=== PATIENT | female | born 1985 | race Two or more races ===

== ENCOUNTER 2021-10-07 20:47 | Emergency (ER) ==
[~2021-10-07] VITALS: Ht 162.6 cm; Wt 58.0 kg
[2021-10-07 20:48] VITALS: BP 129/79
== END 2021-10-07 22:34 | disposition left against medical advice (07) ==
LOC: M ED 20:47
DX: Z53.21 Procedure and treatment not carried out due to patient leaving prior to being seen by health care provider (principal)

== ENCOUNTER 2021-10-08 08:51 | Emergency (ER) | payer MEDICAID ==
[~2021-10-08] VITALS: Ht 167.6 cm; Wt 57.7 kg
[2021-10-08 12:38] LABS: BASO % 0.4 % (0.0-1.0); EOS # 0.1 10^3/uL (0.0-0.5); EOS % 1.1 % (0.0-3.0); HEMATOCRIT 38.1 % (36.0-47.0); HEMOGLOBIN 12.3 g/dl (12.0-15.5); LYMPH # 2.4 10^3/uL (1.5-5.0); LYMPH % 22.7 % (24.0-44.0); MEAN CORPUSCULAR HEMOGLOBIN 29.1 pg (27.0-33.0); MEAN CORPUSCULAR HGB CONC 32.3 g/dl (32.0-36.5); MEAN CORPUSCULAR VOLUME 90.3 fl (80.0-96.0); MONO # 0.8 10^3/uL (0.0-0.8); MONO % 7.4 % (2.0-8.0); NEUTROPHILS # 7.1 10^3/uL (1.5-8.5); NEUTROPHILS % 68.1 % (36.0-66.0); PLATELET COUNT, AUTOMATED 262 10^3/uL (150-450); RED BLOOD COUNT 4.22 10^6/uL (4.00-5.40); WHITE BLOOD COUNT 10.5 10^3/uL (4.0-10.0)
--- NOTE | 2021-10-08 13:47 | REP ---
INDICATION: vaginal bleeding LMP 08/16/21. COMPARISON: None. TECHNIQUE: Transabdominal imaging FINDINGS: Within the uterus there is an anechoic structure with increased echoes surrounding it consistent with a decidual reaction. Within the gestational sac there is echogenic material consistent with a pole the mean crown-rump length measurement of which is consistent with an 8 week 1 day gestational age. Based on that the estimated date of delivery is 05/19/2022. Doppler interrogation of the pole shows a heart rate of 167 beats per minute. No chorionic or subchorionic abnormalities were identified. IMPRESSION: Early OB ultrasound as described above. <Electronically signed by Gigi Chen > 10/08/21 [id number]
[2021-10-08] MEDS ORDERED: RHOGAM 300 MCG (1500 IU) INJ (J2790) IM ONE (14:55)
[2021-10-08 15:52] LABS: GC DNA AMPLIFICATION NEGATIVE (NEGATIVE)
[2021-10-08 17:31] VITALS: BP 115/82
== END 2021-10-08 17:33 | disposition home or self-care (01) ==
LOC: M ED 08:51
DX: O20.0 Threatened abortion (principal); Z3A.08 8 weeks gestation of pregnancy; O20.8 Other hemorrhage in early pregnancy; O09.511 Supervision of elderly primigravida, first trimester
CPT/HCPCS: 76801; 81001; 84702; 85025; 86850; 86900; 86901; 87210; 87661; 96372; 99283; J2790

== ENCOUNTER → 2021-10-26 | Outpatient (CLI) | payer MEDICAID, OTHER ==
[2021-10-26 17:21] LABS: BASO # 0.1 10^3/uL (0.0-0.2); BASO % 0.3 % (0.0-1.0); EOS # 0.2 10^3/uL (0.0-0.5); EOS % 1.1 % (0.0-3.0); HEMATOCRIT 38.8 % (36.0-47.0); HEMOGLOBIN 12.9 g/dl (12.0-15.5); LYMPH # 2.7 10^3/uL (1.5-5.0); LYMPH % 18.2 % (24.0-44.0); MEAN CORPUSCULAR HEMOGLOBIN 29.3 pg (27.0-33.0); MEAN CORPUSCULAR HGB CONC 33.2 g/dl (32.0-36.5); MEAN CORPUSCULAR VOLUME 88.2 fl (80.0-96.0); NEUTROPHILS # 10.8 10^3/uL (1.5-8.5); PLATELET COUNT, AUTOMATED 302 10^3/uL (150-450); WHITE BLOOD COUNT 14.8 10^3/uL (4.0-10.0)
[2021-10-26 18:34] LABS: HEPATITIS C VIRUS ABY INDEX 0.1 INDEX (<0.8); HIV 1&2 SCREEN CENTAUR NEGATIVE (NEGATIVE)
[2021-10-26 21:05] LABS: GC DNA AMPLIFICATION NEGATIVE (NEGATIVE)
== END ==
LOC: M PLALAB 15:52
PROVIDERS: ATTEND Advanced Practice Midwife
DX: Z36.89 Encounter for other specified antenatal screening (principal); Z3A.10 10 weeks gestation of pregnancy

== ENCOUNTER → 2021-11-12 | Outpatient (CLI) | payer MEDICAID, OTHER, SELFPAY | LOC: M PLALAB 10:34 | PROVIDERS: ATTEND Specialist | DX: O09.511 Supervision of elderly primigravida, first trimester (principal) ==

== ENCOUNTER → 2021-12-14 | Outpatient (REF) | payer MEDICAID, OTHER, SELFPAY | LOC: M PLALAB 08:23 | PROVIDERS: ATTEND Obstetrics & Gynecology | DX: R82.71 Bacteriuria (principal) ==

== ENCOUNTER → 2022-01-04 | Outpatient (CLI) | payer MEDICAID, OTHER, SELFPAY | LOC: M WHC 07:05 | PROVIDERS: ATTEND Obstetrics & Gynecology | DX: Z36.89 Encounter for other specified antenatal screening (principal); Z3A.20 20 weeks gestation of pregnancy; O32.1XX0 Maternal care for breech presentation, not applicable or unspecified ==

== ENCOUNTER → 2022-01-21 | Outpatient (CLI) | payer MEDICAID, SELFPAY | LOC: M WHC 07:09 | PROVIDERS: ATTEND Obstetrics & Gynecology | DX: Z36.2 Encounter for other antenatal screening follow-up (principal); Z3A.23 23 weeks gestation of pregnancy ==

== ENCOUNTER → 2022-02-11 | Outpatient (CLI) | payer OTHER, SELFPAY ==
[2022-02-11 10:02] LABS: HEMATOCRIT 34.8 % (36.0-47.0); HEMOGLOBIN 11.3 g/dl (12.0-15.5); MEAN CORPUSCULAR HEMOGLOBIN 30.3 pg (27.0-33.0); MEAN CORPUSCULAR HGB CONC 32.5 g/dl (32.0-36.5); MEAN CORPUSCULAR VOLUME 93.3 fl (80.0-96.0); PLATELET COUNT, AUTOMATED 223 10^3/uL (150-450); RED BLOOD COUNT 3.73 10^6/uL (4.00-5.40); WHITE BLOOD COUNT 15.2 10^3/uL (4.0-10.0)
== END ==
LOC: M PLALAB 07:39
PROVIDERS: ATTEND Obstetrics & Gynecology
DX: Z34.92 Encounter for supervision of normal pregnancy, unspecified, second trimester (principal); Z3A.00 Weeks of gestation of pregnancy not specified
CPT/HCPCS: 36415; 82950; 85027; 86850; 86900; 86901; J2790

== ENCOUNTER → 2022-02-11 | Outpatient (REF) | payer OTHER, SELFPAY ==
[2022-02-11 13:52] LABS: APPEARANCE, URINE CLEAR (CLEAR); BACTERIA, URINE AUTO 1+ (NEGATIVE); BILIRUBIN, URINE AUTO NEGATIVE (NEGATIVE); BLOOD, URINE BLOOD NEGATIVE (NEGATIVE); COLOR, URINE YELLOW (YELLOW); GLUCOSE, URINE (UA) AUTO NEGATIVE (NEGATIVE); KETONE, URINE AUTO NEGATIVE (NEGATIVE); LEUKOCYTE ESTERASE, URINE AUTO NEGATIVE (NEGATIVE); MUCUS, URINE SMALL (NEGATIVE); NITRITE, URINE AUTO NEGATIVE (NEGATIVE); PROTEIN, URINE AUTO NEGATIVE (NEGATIVE); RBC, URINE AUTO 0 /HPF (0-3); SPECIFIC GRAVITY URINE AUTO 1.016 (1.002-1.035); SQUAMOUS EPITHELIAL CELL UR AU 1 /HPF (0-6); UROBILINOGEN, URINE AUTO 0.2 mg/dL (0.0-2.0); WBC, URINE AUTO 1 /HPF (0-3)
== END ==
LOC: M SFHCWAGY 12:46
PROVIDERS: ATTEND Obstetrics & Gynecology
DX: Z34.92 Encounter for supervision of normal pregnancy, unspecified, second trimester (principal)

== ENCOUNTER 2022-02-25 20:51 | Outpatient (CLI) | payer SELFPAY ==
[~2022-02-25] VITALS: Ht 162.6 cm; Wt 70.4 kg
[2022-02-25 21:07] VITALS: BP 116/67
[2022-02-25 22:47] VITALS: BP 106/61
[2022-02-26 01:44] LABS: GC DNA AMPLIFICATION NEGATIVE (NEGATIVE)
== END 2022-02-26 00:13 | disposition home or self-care (01) ==
LOC: M LDO 20:51
PROVIDERS: ATTEND Obstetrics & Gynecology
DX: O26.892 Other specified pregnancy related conditions, second trimester (principal); R10.2 Pelvic and perineal pain; N89.8 Other specified noninflammatory disorders of vagina; O09.512 Supervision of elderly primigravida, second trimester; Z3A.37 37 weeks gestation of pregnancy
CPT/HCPCS: 59025; 81001; 87661; 87810; 87850; G0378; G0463

== ENCOUNTER → 2022-04-29 | Outpatient (REF) | payer OTHER, SELFPAY ==
[~2022-04-29] MED LIST: PRENTAB9 PO
== END ==
LOC: M SFHCWAGY 10:10
PROVIDERS: ATTEND Obstetrics & Gynecology
DX: Z36.89 Encounter for other specified antenatal screening (principal); Z3A.00 Weeks of gestation of pregnancy not specified; O09.513 Supervision of elderly primigravida, third trimester

== ENCOUNTER 2022-05-23 17:00 | Inpatient (IN) | payer OTHER, SELFPAY ==
[~2022-05-23] VITALS: Ht 162.6 cm; Wt 76.2 kg
[2022-05-23 17:32] VITALS: BP 135/68
[2022-05-23] MEDS ORDERED: PRENTAB9 PO (17:47)
[2022-05-23] MEDS ORDERED: HOME MED LIST COMPLETE! XX SCH (17:50)
[2022-05-23 19:12] VITALS: BP 116/68
[2022-05-23 20:39] VITALS: BP 121/66
[2022-05-23] MEDS ORDERED: CARBOPROST TROMETHAMINE 250 MCG/ML AMP IM PRN (21:10)
[2022-05-23] MEDS ORDERED: LIDOCAINE 1% MDV 20ML VIAL INFIL PRN (21:10)
[2022-05-23] MEDS ORDERED: PENICILLIN G POTASSIUM IV 5 MU in D5W MINI-BAG PLUS 100 ML IV STA (21:10)
[2022-05-23] MEDS ORDERED: LACTATED RINGER'S 1000 ML IV STA (21:10)
[2022-05-23] MEDS ORDERED: METHYLERGONOVINE MALEATE 0.2 MG/ML VIAL (J2210) IM PRN (21:10)
[2022-05-23] MEDS ORDERED: OXYTOCIN DRIP 30 UNITS in IV 1 EA IV PRN (21:10)
[2022-05-23] MEDS ORDERED: TRANEXAMIC ACID INJection 1,000 MG in NS 100 ML IV PRN (21:10)
[2022-05-23 22:27] VITALS: BP 115/64
[2022-05-23 23:35] VITALS: BP 123/75
[2022-05-24] VITALS (54 sets, daily range): BP systolic 84–155; BP diastolic 48–75
[2022-05-24] MEDS ORDERED: PENICILLIN G POTASSIUM IV 5 MU in D5W MINI-BAG PLUS 100 ML IV STA ×2
[2022-05-24 00:16] LABS: HEMATOCRIT 38.4 % (36.0-47.0); HEMOGLOBIN 12.5 g/dl (12.0-15.5); MEAN CORPUSCULAR HEMOGLOBIN 29.1 pg (27.0-33.0); MEAN CORPUSCULAR HGB CONC 32.6 g/dl (32.0-36.5); MEAN CORPUSCULAR VOLUME 89.5 fl (80.0-96.0); PLATELET COUNT, AUTOMATED 217 10^3/uL (150-450); RED BLOOD COUNT 4.29 10^6/uL (4.00-5.40); WHITE BLOOD COUNT 18.2 10^3/uL (4.0-10.0)
[2022-05-24] MEDS ORDERED: PENICILLIN G POTASSIUM IV 2.5 MU in IV 1 EA IV SCH (01:10)
[2022-05-24] MEDS ORDERED: ePHEDrine SULFATE 25 MG/5 ML(5MG/ML) SYRINGE IVP PRN (02:05)
[2022-05-24] MEDS ORDERED: NALOXONE INJ 0.4MG/1ML VIAL (J2310 PER 1MG) IV PRN (02:05)
[2022-05-24] MEDS ORDERED: LR 500 ML IV PRN (02:05)
[2022-05-24] MEDS ORDERED: EPIDURAL/PCA KEYS XX PRN (02:05)
[2022-05-24] MEDS ORDERED: ONDANSETRON 4MG 2ML VIAL IV PRN (02:05)
[2022-05-24] MEDS ORDERED: diphenhydrAMINE 50MG/ML VIAL (J1200) IV PRN (02:05)
[2022-05-24] MEDS: LR 1,000 ML IV SCH ×2 (02:49→06:08)
[2022-05-24] MEDS: FENTANYL/ROPIVACAINE/NACL BAG 100 ML EPIDURAL SCH ×3 (03:17→19:16)
[2022-05-24] MEDS: PENICILLIN G POTASSIUM IV 2.5 MU in IV 1 EA IV SCH ×4 (04:18→17:40)
[2022-05-24] MEDS ORDERED: OXYTOCIN DRIP 30 UNITS in IV 1 EA IV SCH ×6 (06:00→23:45)
[2022-05-24 23:22] LABS: CORD GAS ABE V -3.6; CORD GAS HCO3 A 22.3 MEQ/L; CORD GAS HCO3 V 20.4 MEQ/L; CORD GAS O2 SAT A 35.8 %; CORD GAS O2 SAT V 83.6 %; CORD GAS PCO2 A 49.9 mmHg; CORD GAS PCO2 V 33.9 mmHg; CORD GAS PH A 7.268 UNITS; CORD GAS PH V 7.397 UNITS; CORD GAS PO2 A 17.6 mmHg; CORD GAS PO2 V 35.7 mmHg; CORD GAS SBC V 21.2 MEQ/L; CORD GAS TCO2 A 23.8 MEQ/L; CORD GAS TCO2 V 21.4 MEQ/L
[2022-05-24] MEDS ORDERED: RHOGAM 300 MCG (1500 IU) INJ (J2790) IM SCH (23:45)
[2022-05-24] MEDS ORDERED: DIBUCAINE 1% OINTMENT 30GM TOP PRN (23:45)
[2022-05-24] MEDS ORDERED: IBUPROFEN 800 MG TAB PO PRN (23:45)
[2022-05-24] MEDS ORDERED: ANUSOL HC CREAM 30GM TOP PRN (23:45)
[2022-05-24] MEDS ORDERED: MOM 30ML SUSPENSION UDC PO PRN (23:45)
[2022-05-24] MEDS ORDERED: DOCUSATE SODIUM 100MG CAPSULE PO PRN (23:45)
[2022-05-24] MEDS ORDERED: METHYLERGONOVINE MALEATE 0.2 MG TAB PO PRN (23:45)
[2022-05-24] MEDS ORDERED: IBUPROFEN 600MG TAB PO PRN (23:45)
[2022-05-24] MEDS ORDERED: ACETAMINOPHEN TAB 650MG DOSE (2X325MG) PO PRN (23:45)
[2022-05-25] VITALS (7 sets, daily range): BP systolic 105–121; BP diastolic 56–71
[2022-05-25] MEDS: ACETAMINOPHEN 500 MG TAB PO PRN ×2 (03:14→17:44)
[2022-05-25] MEDS: PRENATAL VITAMINS CHEWABLE TABLET PO SCH (10:03)
[2022-05-26 06:00] VITALS: BP 113/60
[2022-05-26] MEDS: PRENATAL VITAMINS CHEWABLE TABLET PO SCH (07:49)
[2022-05-26] MEDS ORDERED: MEASLES,MUMPS,RUBELLA VACCINE INJ (MMR-II) (90707) SC.IMMUN ONE (09:00)
== END 2022-05-26 10:10 | disposition home or self-care (01) | DRG 560 ==
LOC: M LDO 17:00 → M LDI 21:18 → M OBS 05-25 01:31
PROVIDERS: ADMIT Advanced Practice Midwife; ATTEND Obstetrics & Gynecology
PROC: 10E0XZZ Delivery of Products of Conception, External Approach (ICD-10-PCS; principal; 2022-05-24)
PROC: 10907ZC Drainage of Amniotic Fluid, Therapeutic from Products of Conception, Via Natural or Artificial Opening (ICD-10-PCS; 2022-05-24)
PROC: 0HQ9XZZ Repair Perineum Skin, External Approach (ICD-10-PCS; 2022-05-24)
DX: O66.0 Obstructed labor due to shoulder dystocia (principal); O99.824 Streptococcus B carrier state complicating childbirth; Z3A.40 40 weeks gestation of pregnancy; Z37.0 Single live birth; O70.0 First degree perineal laceration during delivery